=== PATIENT | male | born 2000 | race African-American/Black ===

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

== ENCOUNTER 2023-07-30 13:57 | Inpatient (IN) | payer SELFPAY ==
[~2023-07-30] VITALS: Ht 165.1 cm; Wt 82.3 kg
[2023-07-30] VITALS (266 sets, daily range): BP systolic 129; BP diastolic 80; PULSE 91; TEMP 98.2; O2SAT 92–100
[2023-07-30] MEDS ORDERED: NS 1,000 ML IV ONE (14:30)
[2023-07-30 14:31] LABS: COLLECTION METHOD CLEAN CATCH
[2023-07-30 14:40] LABS: URINE APPEARANCE CLEAR (CLEAR/HAZY); URINE BLOOD NEGATIVE (NEGATIVE); URINE COLOR YELLOW (YELLOW); URINE GLUCOSE 3+ (NEGATIVE); URINE KETONE 4+ (NEGATIVE); URINE NITRATE NEGATIVE (NEGATIVE); URINE PROTEIN(semi-quant) 1+ (NEGATIVE); URINE UROBILINOGEN 0.2 E.U/dL (0.2-1.0)
[2023-07-30 15:01] LABS: MUCOUS PRESENT (NOT PRESENT); SQUAMOUS EPITHELIAL 0-2 /hpf (0-10); URINE BACTERIA MODERATE /hpf (NONE SEEN); URINE RBC 0-2 /hpf (0-2); URINE WBC 0-2 /hpf (0-2)
[2023-07-30 15:12] LABS: BASO % 0.4 % (0.0-2.0); EOS % 0.6 % (0.0-4.0); GRAN # 3.4 K/mm3 (1.4-6.5); GRAN % 72.8 % (42.2-75.2); HEMATOCRIT 43.8 % (42.0-52.0); HEMOGLOBIN 14.8 g/dl (13.5-18.0); LYMPH # 0.6 K/mm3 (1.2-3.4); LYMPH % 12.1 % (20.0-51.0); MEAN CELL VOLUME 75 fl (80.0-100.0); MEAN CORPUSCULAR HEMOGLOBIN 25 pg (27-31); MEAN CORPUSCULAR HGB CONC 34 g/dl (33.0-37.0); MEAN PLATELET VOLUME 12.2 fl (7.4-10.4); MONO # 0.6 K/mm3 (0.1-0.6); MONO % 13.9 % (1.7-9.3); PLATELET COUNT 141 K/mm3 (130-400); RED BLOOD COUNT 5.85 M/mm3 (4.20-5.60); REDCELL DISTRIBUTION WIDTH-CV 14.1 % (11.5-14.5)
[2023-07-30 15:20] LABS: ACETONE,SERUM MODERATE
[2023-07-30 15:25] LABS: ALANINE AMINOTRANSFERASE 18 U/L (0-55); ALBUMIN 4.3 gm/dL (3.5-5.0); ALKALINE PHOSPHATASE 98 U/L (40-150); ANION GAP 22 mmol/L (7-16); AST,SGOT 19 U/L (5-34); BILIRUBIN,TOTAL 0.7 mg/dL (0.2-1.2); BLOOD UREA NITROGEN 10 mg/dL (9-21); CALCIUM 9.6 mg/dL (8.4-10.2); CHLORIDE 100 mmol/L (98-107); LIPASE 35 U/L (8-78); POTASSIUM 4.2 mmol/L (3.5-4.5); SODIUM 133 mmol/L (136-145); TOTAL PROTEIN 7.2 gm/dL (6.2-8.1)
[2023-07-30 15:27] LABS: CARBON DIOXIDE 11 mmol/L (22-29); GLUCOSE 424 mg/dL (70-99)
[2023-07-30] MEDS ORDERED: Insulin Human Regular/NS 100 ML IV ONE (15:45)
[2023-07-30] MEDS ORDERED: Polyethylene Glycol 3350 17 GM PDS PO PRN (15:45)
[2023-07-30] MEDS ORDERED: Docusate Sodium 100 MG CAP PO PRN (15:45)
[2023-07-30] MEDS ORDERED: Ondansetron 4 MG/2 ML VIAL IV PRN (15:45)
[2023-07-30] MEDS ORDERED: Acetaminophen 325 MG TAB PO PRN (15:45)
[2023-07-30] MEDS ORDERED: Insulin Human Regular/NS 100 ML IV SCH (16:00)
[2023-07-30] MEDS ORDERED: D5W 1,000 ML IV SCH (16:00)
[2023-07-30] MEDS ORDERED: NS 1,000 ML IV SCH (16:00)
[2023-07-30 19:19] LABS: CALCIUM 8.9 mg/dL (8.4-10.2); CREATININE, serum 1.51 mg/dL (0.72-1.25); POTASSIUM 3.5 mmol/L (3.5-4.5)
[2023-07-31] VITALS (349 sets, daily range): BP systolic 113–130; BP diastolic 70–92; PULSE 104–121; TEMP 98.3–101.6; O2SAT 78–100
[2023-07-31 02:23] LABS: CALCIUM 8.6 mg/dL (8.4-10.2); CREATININE, serum 1.25 mg/dL (0.72-1.25)
[2023-07-31] MEDS ORDERED: *Potassium Replacement Protocol MC SCH (02:45)
[2023-07-31] MEDS ORDERED: Potassium Bicarbonate/Citrate 20 MEQ Effervescent TAB PO SCH (02:45)
[2023-07-31] MEDS ORDERED: D5 1/2 NS 1,000 ML IV SCH (02:45)
[2023-07-31 02:52] LABS: MAGNESIUM 1.7 mg/dL (1.6-2.6); PHOSPHOROUS 1.5 mg/dL (2.3-4.7)
[2023-07-31] MEDS ORDERED: Potassium Phoshate 20 MM in NS 250 ML IV ONE (03:30)
[2023-07-31 04:21] LABS: BASO % 0.5 % (0.0-2.0); EOS % 0.5 % (0.0-4.0); GRAN # 3.3 K/mm3 (1.4-6.5); GRAN % 76.6 % (42.2-75.2); HEMATOCRIT 38.5 % (42.0-52.0); HEMOGLOBIN 13.2 g/dl (13.5-18.0); LYMPH # 0.4 K/mm3 (1.2-3.4); LYMPH % 9.8 % (20.0-51.0); MEAN CELL VOLUME 75 fl (80.0-100.0); MEAN CORPUSCULAR HEMOGLOBIN 26 pg (27-31); MEAN CORPUSCULAR HGB CONC 34 g/dl (33.0-37.0); MEAN PLATELET VOLUME 12.5 fl (7.4-10.4); MONO # 0.5 K/mm3 (0.1-0.6); MONO % 12.4 % (1.7-9.3); PLATELET COUNT 122 K/mm3 (130-400); RED BLOOD COUNT 5.14 M/mm3 (4.20-5.60); REDCELL DISTRIBUTION WIDTH-CV 14.2 % (11.5-14.5)
[2023-07-31 04:39] LABS: CALCIUM 8.6 mg/dL (8.4-10.2); CREATININE, serum 1.29 mg/dL (0.72-1.25); POTASSIUM 3.2 mmol/L (3.5-4.5)
[2023-07-31 06:24] LABS: CALCIUM 8.8 mg/dL (8.4-10.2); CREATININE, serum 1.32 mg/dL (0.72-1.25); MAGNESIUM 1.7 mg/dL (1.6-2.6); POTASSIUM 3.2 mmol/L (3.5-4.5)
[2023-07-31] MEDS ORDERED: Magnesium Sulfate 4% 50 ML IV ONE (07:45)
[2023-07-31] MEDS ORDERED: Insulin Aspart (NovoLOG) SQ SCH (08:00)
[2023-07-31] MEDS ORDERED: Dextrose 50% Water 25 GM/50 ML SYRINGE IV PRN (08:00)
[2023-07-31] MEDS ORDERED: Dextrose (Glucose) 15 GM (4 x 3.75 GM) Chewable TABLET PACK PO PRN (08:00)
[2023-07-31] MEDS ORDERED: Glucagon 1 MG VIAL IM PRN (08:00)
[2023-07-31 08:34] LABS: CALCIUM 8.6 mg/dL (8.4-10.2); CREATININE, serum 1.25 mg/dL (0.72-1.25); POTASSIUM 3.5 mmol/L (3.5-4.5)
[2023-07-31] MEDS ORDERED: Potassium Chloride 100 ML IV SCH (09:45)
[2023-07-31 11:07] LABS: CALCIUM 8.9 mg/dL (8.4-10.2); CREATININE, serum 1.08 mg/dL (0.72-1.25)
[2023-07-31 11:14] LABS: POTASSIUM 2.9 mmol/L (3.5-4.5)
[2023-07-31] MEDS ORDERED: Potassium Bicarbonate/Citrate 20 MEQ Effervescent TAB PO ONE (20:45)
[2023-08-01 03:15] VITALS: BP 118/72; PULSE 112; TEMP 98.9
[2023-08-01 07:07] VITALS: BP 101/64; PULSE 115; TEMP 99.5
[2023-08-01 11:30] VITALS: BP 141/90; PULSE 110; TEMP 98.3
[2023-08-01 12:56] LABS: BASO % 0.6 % (0.0-2.0); EOS % 0.2 % (0.0-4.0); GRAN # 3.1 K/mm3 (1.4-6.5); GRAN % 59.9 % (42.2-75.2); HEMATOCRIT 41.4 % (42.0-52.0); HEMOGLOBIN 14.4 g/dl (13.5-18.0); LYMPH # 1.2 K/mm3 (1.2-3.4); LYMPH % 23.3 % (20.0-51.0); MEAN CELL VOLUME 74 fl (80.0-100.0); MEAN CORPUSCULAR HEMOGLOBIN 26 pg (27-31); MEAN CORPUSCULAR HGB CONC 35 g/dl (33.0-37.0); MEAN PLATELET VOLUME 10.8 fl (7.4-10.4); MONO # 0.8 K/mm3 (0.1-0.6); MONO % 15.8 % (1.7-9.3); PLATELET COUNT 132 K/mm3 (130-400); RED BLOOD COUNT 5.57 M/mm3 (4.20-5.60); REDCELL DISTRIBUTION WIDTH-CV 14.7 % (11.5-14.5)
[2023-08-01 13:10] LABS: CALCIUM 9.5 mg/dL (8.4-10.2); CREATININE, serum 1.39 mg/dL (0.72-1.25); MAGNESIUM 1.8 mg/dL (1.6-2.6); PHOSPHOROUS 2.6 mg/dL (2.3-4.7); POTASSIUM 3.8 mmol/L (3.5-4.5)
[2023-08-01 16:14] VITALS: BP 113/73; PULSE 110; TEMP 98.3
[2023-08-01] MEDS ORDERED: Potassium Bicarbonate/Citrate 20 MEQ Effervescent TAB PO ONE (19:45)
[2023-08-01 19:47] VITALS: BP 120/75; PULSE 109; TEMP 97.7
[2023-08-01 23:49] VITALS: BP 132/81; PULSE 116; TEMP 99
[2023-08-02 05:16] VITALS: BP 132/92; PULSE 110; TEMP 98.6
[2023-08-02 07:13] VITALS: BP 138/75; PULSE 110; TEMP 98.9
[2023-08-02] MEDS ORDERED: NS 1,000 ML IV SCH ×2 (09:15→11:30)
[2023-08-02] MEDS ORDERED: INSULIN GL100 UNIT/2 SQ (09:20)
[2023-08-02] MEDS ORDERED: BD ALCOHOL1 SWA MC (09:20)
[2023-08-02] MEDS ORDERED: LANCETS MC (09:20)
[2023-08-02] MEDS ORDERED: CONTROL SOLUTI1 EAC1 MC (09:20)
[2023-08-02] MEDS ORDERED: GLUCAGON EMERGEN1 M1 SQ (09:20)
[2023-08-02] MEDS ORDERED: GLUTOSE 1515 GM PO (09:20)
[2023-08-02] MEDS ORDERED: GLUCOSE TEST ST1 DEV MC (09:20)
[2023-08-02] MEDS ORDERED: FREESTYLE PREC1 EAC5 MC (09:20)
[2023-08-02] MEDS ORDERED: INSULIN PEN NE1 EAC1 MC (09:20)
[2023-08-02] MEDS ORDERED: NOVOLOG FLEX100 U/ML SQ (09:20)
[2023-08-02 10:13] LABS: BASO % 0.6 % (0.0-2.0); EOS % 0.3 % (0.0-4.0); GRAN # 1.7 K/mm3 (1.4-6.5); GRAN % 48.1 % (42.2-75.2); HEMATOCRIT 44.2 % (42.0-52.0); HEMOGLOBIN 15.2 g/dl (13.5-18.0); LYMPH # 1.2 K/mm3 (1.2-3.4); LYMPH % 34.9 % (20.0-51.0); MEAN CELL VOLUME 74 fl (80.0-100.0); MEAN CORPUSCULAR HEMOGLOBIN 26 pg (27-31); MEAN CORPUSCULAR HGB CONC 34 g/dl (33.0-37.0); MEAN PLATELET VOLUME 11.7 fl (7.4-10.4); MONO # 0.6 K/mm3 (0.1-0.6); MONO % 16.1 % (1.7-9.3); PLATELET COUNT 133 K/mm3 (130-400); RED BLOOD COUNT 5.97 M/mm3 (4.20-5.60); REDCELL DISTRIBUTION WIDTH-CV 14.5 % (11.5-14.5)
[2023-08-02 10:17] LABS: CALCIUM 9.6 mg/dL (8.4-10.2); CREATININE, serum 1.22 mg/dL (0.72-1.25); MAGNESIUM 1.8 mg/dL (1.6-2.6); POTASSIUM 3.9 mmol/L (3.5-4.5)
[2023-08-02 11:23] VITALS: BP 131/79; PULSE 100; TEMP 98.9
[2023-08-02] MEDS ORDERED: Potassium Bicarbonate/Citrate 20 MEQ Effervescent TAB PO ONE (11:45)
[2023-08-02] MEDS ORDERED: Insulin Aspart (NovoLOG) SQ SCH ×2 (12:00)
[2023-08-02 15:34] VITALS: BP 132/76; PULSE 101; TEMP 98.2
[2023-08-02 20:00] VITALS: BP 121/78; PULSE 93; TEMP 98.4
[2023-08-03 00:32] VITALS: BP 122/79; PULSE 95; TEMP 98.4
[2023-08-03 04:12] VITALS: BP 144/86; PULSE 93; TEMP 98.3
[2023-08-03 07:12] VITALS: BP 115/70; PULSE 89; TEMP 98.5
[2023-08-03 08:47] LABS: BASO % 0.5 % (0.0-2.0); EOS % 0.8 % (0.0-4.0); GRAN # 2.1 K/mm3 (1.4-6.5); HEMATOCRIT 40.6 % (42.0-52.0); HEMOGLOBIN 13.9 g/dl (13.5-18.0); LYMPH # 1.1 K/mm3 (1.2-3.4); LYMPH % 31.3 % (20.0-51.0); MEAN CELL VOLUME 75 fl (80.0-100.0); MEAN CORPUSCULAR HEMOGLOBIN 26 pg (27-31); MEAN CORPUSCULAR HGB CONC 34 g/dl (33.0-37.0); MEAN PLATELET VOLUME 10.9 fl (7.4-10.4); MONO # 0.4 K/mm3 (0.1-0.6); MONO % 10.4 % (1.7-9.3); PLATELET COUNT 126 K/mm3 (130-400); RED BLOOD COUNT 5.45 M/mm3 (4.20-5.60); REDCELL DISTRIBUTION WIDTH-CV 14.7 % (11.5-14.5)
[2023-08-03 09:03] LABS: CALCIUM 9.2 mg/dL (8.4-10.2); CREATININE, serum 0.92 mg/dL (0.72-1.25); POTASSIUM 3.7 mmol/L (3.5-4.5)
== END 2023-08-03 11:10 | disposition home or self-care (01) | DRG 682 ==
LOC: COL.ER 13:57 → ICU 15:39 → MEDICAL 15:39 → ICU 21:30 → MEDICAL 07-31 13:53
PROVIDERS: Emergency Medicine; Internal Medicine; Nurse Practitioner Family; Physician Assistant; ADMIT Hospitalist
PROC: 05HM33Z Insertion of Infusion Device into Right Internal Jugular Vein, Percutaneous Approach (ICD-10-PCS; principal; 2023-07-30)
DX: N17.9 Acute kidney failure, unspecified (principal); E11.10 Type 2 diabetes mellitus with ketoacidosis without coma; U07.1 COVID-19; Z79.4 Long term (current) use of insulin; E87.6 Hypokalemia; E83.42 Hypomagnesemia; I45.10 Unspecified right bundle-branch block
CPT/HCPCS: C1751; J0780; J1650; J1815; J3475; J3480; J7030; J7050; J7070

== ENCOUNTER 2024-02-03 19:36 | Emergency (ER) | payer OTHER ==
[~2024-02-03] VITALS: Ht 167.6 cm; Wt 83.6 kg
[~2024-02-03 19:36] MED LIST changes: +BD ALCOHOL1 SWA MC; +CONTROL SOLUTI1 EAC1 MC; +FREESTYLE PREC1 EAC5 MC; +GLUCAGON EMERGEN1 M1 SQ; +GLUCOSE TEST ST1 DEV MC; +GLUTOSE 1515 GM PO; +INSULIN GL100 UNIT/2 SQ; +INSULIN PEN NE1 EAC1 MC; +LANCETS MC; +NOVOLOG FLEX100 U/ML SQ
[2024-02-03 19:41] VITALS: BP 136/83; PULSE 90; TEMP 98.8
== END 2024-02-03 20:24 | disposition left against medical advice (07) ==
LOC: COL.ER 19:36
DX: R07.89 Other chest pain (principal)